=== PATIENT | male | born 1970 | race Caucasian/White ===

== ENCOUNTER 2017-11-19 19:58 | Emergency (ER) | payer BC ==
[~2017-11-19] VITALS: Ht 180.3 cm; Wt 80.4 kg
[2017-11-19 20:52] LABS: HEMATOCRIT 44.5 % (38.0-50.0); HEMOGLOBIN 15.8 G/DL (12.5-16.6); MCH 32.3 PG (29.0-34.0); MCHC 35.5 G/DL (30.0-36.0); PLATELET COUNT 283 K/uL (156-360); RBC DIS.WIDTH-SD 42.9 % (39-53); RED BLOOD COUNT 4.89 M/uL (4.00-5.50)
[2017-11-19 21:03] LABS: CHLORIDE 103 mEq/L (99-109); POTASSIUM 3.7 mEq/L (3.7-5.4); SODIUM 138 mEq/L (136-147)
[2017-11-19 21:04] LABS: GLUCOSE 102 mg/dL (70-99)
[2017-11-19 21:09] LABS: UREA NITROGEN (BUN) 7 mg/dL (9-23)
[2017-11-19 21:10] LABS: GFR ESTIMATE (CALCULATED) > 59 mL/min/ (58.99-99999)
[2017-11-19 21:14] LABS: TROP-I INTERPRETATION NEGATIVE; TROPONIN-I < 0.01 ng/mL (0.0-0.30)
[2017-11-19 22:59] LABS: TROP-I INTERPRETATION NEGATIVE; TROPONIN-I < 0.01 ng/mL (0.0-0.30)
[2017-11-19] MEDS ORDERED: VALIUM5 MG PO (23:04)
[2017-11-19] MEDS ORDERED: LIDODERM 5% P1 PATCH TD (23:04)
[2017-11-19] MEDS ORDERED: NAPROXEN500 MG PO (23:04)
[2017-11-19 23:22] VITALS: BP 134/78
== END 2017-11-19 23:25 | disposition home or self-care (01) ==
LOC: EME 19:58
PROVIDERS: Physician Assistant Medical
DX: M54.12 Radiculopathy, cervical region (principal); F17.200 Nicotine dependence, unspecified, uncomplicated
CPT/HCPCS: 71046; 80048; 84484; 85027; 93005; 99281; 99283; J1885